=== PATIENT | male | born 1965 | race African-American/Black ===

== ENCOUNTER 2019-08-14 19:29 | Emergency (ER) | payer MEDICARE, SELFPAY ==
--- NOTE | ~2019-08-14 | XR_ITS ---
EXAMINATION: XR chest 1V portable EXAM DATE: 08/14/2019 20:34 INDICATION: Cough and fever. TECHNIQUE: Frontal and lateral projections of the chest obtained and reviewed. Comparison is made to prior examination from 09/17/2004. FINDINGS: Mild hyperinflation. The lungs are clear. There are no pleural effusions. The cardiomedia stinal silhouette is within normal limits. There is no pneumothorax suspected. The bones and soft t issues are unremarkable. Cervical fusion hardware. IMPRESSION: No acute cardiopulmonary findings. Reviewed, dictated and finalized at location A.
--- NOTE | 2019-08-14 19:33 | ED.SOB ---
HPI - SOB/Dyspnea General Chief Complaint: Upper Respiratory Infection Stated Complaint: ambulance Time Seen by Provider: 08/14/19 19:33 Source: patient, EMS and RN notes reviewed Mode of arrival: EMS Limitations: no limitations History of Present Illness HPI Narrative: 53-year-old white male with a history of bronchitis, current smoker of 1/2 to 2 packs per day. Patient has been having symptoms for approximately 1 week. He has been having fever as high as 104. He had fever today to 101.1. He took Tylenol. Says he has been feeling in general run down. He called [facility] Department they were concerned that he may have possible pelaez virus. Patient denies any exposure to anyone that has a known case of the infection. He has traveled to the [facility] where there are numerous cases. He feels at times short of breath he denies any loss of taste or smell. He does state that he had left eye discharge 2 weeks ago and that has been decreasing but is still intermittent. He denies any history of COPD. MD elicited complaint: shortness of breath and cough Onset (ago): week(s) (1) Context: recent illness Timing: intermittent and progressively worsening Severity: moderate Exacerbating factors: coughing Relieving factors: nothing Associated symptoms: fever (to 104 per patient), cough and wheezing Treatment prior to arrival: none Related Data Home oxygen amount: none Home Medications Medication Instructions Recorded Confirmed metoprolol tartrate 100 mg BYMOUTH DAILY 08/14/19 08/14/19 Allergies Allergy/AdvReac Type Severity Reaction Status Date / Time acetaminophen [From Percocet] Allergy Unknown Verified 08/14/19 19:40 oxycodone [From Percocet] Allergy Unknown Verified 08/14/19 19:40 NSAIDS (Non-Steroidal AdvReac Nausea and Verified 08/14/19 19:41 Anti-Inflamma Vomiting Review of Systems Constitutional: Constitutional: Reports as per HPI and Reports no additional constitutional complaints Eyes: Eyes: Reports as per HPI and Reports eye discharge ENT: Reports system reviewed and no additional complaints, except as documented Cardiovascular: Cardiovascular: Reports no additional cardiovascular complaints Respiratory: Respiratory: Reports as per HPI Gastrointestinal: Gastrointestinal: Reports no additional gastrointestinal complaints Genitourinary: Genitourinary: Reports no additional male genitourinary complaints Musculoskeletal: Musculoskeletal: Reports myalgias Neurologic: Reports system reviewed and no additional complaints, except as documented Psychiatric: Psychiatric: Reports no additional psychiatric complaints Allergic/Immunologic: Allergic/Immunologic: Reports no additional allergic/immunologic complaints [facility] Past Medical History Medical History (Updated 08/14/19 @ 21:20 by James Caal MD) Coronary artery disease Hypertension Surgical History Surgical History (Updated 08/14/19 @ 19:51 by James Caal MD) 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 H/O cervical spine surgery Hx of inguinal hernia surgery Social History Social History (Updated 08/14/19 @ 19:53 by James Caal MD) Smoking packs per day: 1.5 Smoking cigarettes per day: 30.0 Smoking status: Current every day smoker Tobacco type: cigarettes Alcohol intake: current Alcohol use details: occasional Substance use: never Gender identity (if verbalized by the patient): Male Exam Const: General: healthy appearing and no acute distress Nutritional Appearance: well nourished Orientation/consciousness: patient oriented x3 HENMT: Head: normal to inspection Ears: external ears normal Eyes: Conjunctivae: conjunctivae normal Pupils: Equal, round and reactive pupils present EOM: EOMs intact bilaterally Neck: Neck: normal visual inspection Resp: Effort & Inspection: normal respiratory effort Auscultation: clear to auscultation bilaterally, no rhonchi and no wheezes Cardio:
[2019-08-14 19:45] VITALS: BP 140/87; RESP 18; TEMP 36.6; O2SAT 96
[2019-08-14 20:32] LABS: Basophils Absolute Auto 0.03 K/mm3 (0.00-0.10); Basophils Percent Auto 0.3 % (0.0-1.0); Eosinophils Absolute Auto 0.36 K/mm3 (0.02-0.50); Eosinophils Percent Auto 4.1 % (1.0-6.0); Hematocrit 51.4 % (40.0-54.0); Hemoglobin 17.8 g/dL (14.0-18.0); Immature Granulocyte Absolute 0.03 K/mm3 (0.00-0.00); Immature Granulocyte Percent A 0.3 % (0.0-0.0); Lymphocytes Absolute Auto 2.49 K/mm3 (1.10-4.50); Lymphocytes Percent Auto 28.7 % (18.0-42.0); Mean Corpuscular HGB Conc 34.6 g/dL (32.0-36.0); Mean Corpuscular Hemoglobin 31.1 pg (27.0-31.0); Mean Corpuscular Volume 89.9 fL (78.0-102.0); Mean Platelet Volume 10.4 fl (8.7-11.0); Monocytes Absolute Auto 0.58 K/mm3 (0.10-0.90); Monocytes Percent Auto 6.7 % (2.0-11.0); Neutrophils Absolute Auto 5.2 K/mm3 (1.7-7.2); Neutrophils Percent Auto 59.9 % (50.0-70.0); Platelet Count Result 290 K/mm3 (150-420); Red Blood Count 5.72 M/mm3 (4.70-6.10); Red Cell Distribution Width 13.8 % (11.6-14.4); White Blood Count 8.7 K/mm3 (4.8-10.8)
[2019-08-14 20:45] LABS: INR 0.9; Prothrombin Time 9.6 Seconds (9.64-11.0)
[2019-08-14 20:49] LABS: Alanine Aminotransferase 15 U/L (16-63); Albumin Level 3.6 g/dL (3.4-5.0); Alkaline Phosphatase 87 U/L (46-116); Anion Gap 14.3 mmol/L (7-16); Aspartate Amino Transferase 13 U/L (15-37); Bilirubin,Total 0.2 mg/dL (0.00-1.00); Blood Urea Nitrogen 13 mg/dL (7-18); Carbon Dioxide 26 mmol/L (21-32); Chloride 104 mmol/L (98-108); Estimated CRCL calculation 67 ml/min; Estimated Glomerular Filt Rate > 60; Glucose 81 mg/dL (70-99); Osmolality Calculated 289 mOsm/kg (285-295); Potassium 4.3 mmol/L (3.5-5.1); Sodium 140 mmol/L (136-145); Total Protein 7.3 g/dL (6.4-8.2)
[2019-08-14 20:54] LABS: Influenza Control Valid (Valid)
[2019-08-14 21:00] LABS: BNP < 5.0 pg/mL (0-100)
[2019-08-14 21:00] LABS: CRP 1.5 mg/dL (0.0-0.9)
[2019-08-14] MEDS: AZITHROMYCIN 250 MG TABLET 500 MG PO (21:40)
[2019-08-14 21:48] VITALS: BP 125/66; O2SAT 96
--- NOTE | 2019-08-19 11:47 | PC.NURSE ---
NEGATIVE TEST RESULTS GIVEN TO PATIENT [phone]
== END 2019-08-14 21:50 | disposition home or self-care (01) ==
PROVIDERS: Emergency Provider Emergency Medicine
DX: J44.1 Chronic obstructive pulmonary disease with (acute) exacerbation (principal); Z20.828 Contact with and (suspected) exposure to other viral communicable diseases; F17.200 Nicotine dependence, unspecified, uncomplicated
CPT/HCPCS: 36415; 71045; 80053; 83880; 85025; 85610; 86140; 87040; 87804; 99283; 99284; A9270